=== PATIENT | female | born 1995 | race Caucasian/White ===

== ENCOUNTER → 2023-12-26 11:31 | Outpatient (REF) | payer BC, SELFPAY ==
[2023-12-26 12:23] LABS: % Basophils 0.3 % (0-2); % Eosinophils 0.6 % (0-6); % Immature Granulocytes 0.2 % (0-0.5); % Lymphocytes 31.2 % (20.5-51.1); % Monocytes 7.5 % (1.7-9.3); % Neutrophils 60.2 % (42.2-75.2); Absolute Eosinophils 0.1 10^3/uL (0-0.7); Absolute Lymphocytes 2.7 10^3/uL (1.2-3.4); Absolute Monocytes 0.7 10^3/uL (0.1-0.6); Absolute Neutrophils 5.2 10^3/uL (1.4-6.5); Hematocrit 38.4 % (37.0-47.0); Hemoglobin 12.9 g/dL (12.0-16.0); Mean Corp Hgb Conc. 33.6 g/dL (33.0-37.0); Mean Corpuscular Hgb 29.9 pg (27.0-31.0); Mean Corpuscular Volume 88.9 fL (81.0-99.0); Mean Platelet Volume 11.2 fL (7.4-10.4); Nucleated Red Blood Cells % 0 %; Platelet Count 266 10^3/uL (130-400); Red Blood Cell Count 4.32 10^6/uL (4.20-5.40); Red Cell Dist. Width 12.4 % (11.5-14.5); White Blood Cell Count 8.7 10^3/uL (4.8-10.8)
[2023-12-26 12:28] LABS: ALT (SGPT) 21 U/L (0-35); AST (SGOT) 27 U/L (14-36); Albumin 4.7 g/dl (3.5-5.0); Alkaline Phosphatase 41 U/L (38-126); Blood Urea Nitrogen 11 mg/dl (7-17); Calcium 10.2 mg/dl (8.4-10.2); Carbon Dioxide 22 mmol/L (22-30); Chloride 105 mmol/L (98-107); Glucose 85 mg/dl (70-99); HDL Cholesterol 92 mg/dl; LDL Cholesterol, Calculated 113 mg/dl; Potassium 4.1 mmol/L (3.5-5.1); Sodium 135 mmol/L (135-145); Total Bilirubin 0.8 mg/dl (0.2-1.3); Total Cholesterol 219 mg/dl (50-199); Total Protein 7.5 g/dl (6.3-8.2); Triglyceride 73 mg/dl (10-149); Very Low Density Lipoprotein 14 mg/dl (0-30); eGFR > 60.00
[2023-12-26 12:58] LABS: TSH Reflex To Free T4 1.49 uIU/ml (0.47-4.68)
== END ==
LOC: REG 11:31
PROVIDERS: ATTENDING PHYSICIAN Nurse Practitioner
DX: Z00.00 Encounter for general adult medical examination without abnormal findings (principal); Z87.39 Personal history of other diseases of the musculoskeletal system and connective tissue; J30.1 Allergic rhinitis due to pollen; R51.9 Headache, unspecified; E78.5 Hyperlipidemia, unspecified
CPT/HCPCS: 36415; 80053; 80061; 84443; 85025

== ENCOUNTER → 2024-08-16 11:45 | Outpatient (REF) | payer BC, SELFPAY ==
[2024-08-25 00:20] LABS: Chlamydia trachomatis,ThinPrep Negative (Negative); Neisseria gonorrhoeae,ThinPrep Negative (Negative); Specimen Source Cervical
[2024-08-25 05:58] LABS: HPV, High Risk Not Detected; HPV, High Risk Source Cervical
== END ==
LOC: CPAP 11:45
PROVIDERS: ATTENDING PHYSICIAN Nurse Practitioner Family
DX: Z34.90 Encounter for supervision of normal pregnancy, unspecified, unspecified trimester (principal); Z11.3 Encounter for screening for infections with a predominantly sexual mode of transmission; Z11.51 Encounter for screening for human papillomavirus (HPV)
CPT/HCPCS: 87491; 87591; 87624

== ENCOUNTER → 2024-08-17 11:51 | Outpatient (REF) | payer BC, SELFPAY ==
[2024-08-17 13:09] LABS: % Basophils 0.4 % (0-2); % Eosinophils 0.8 % (0-6); % Immature Granulocytes 0.4 % (0-0.5); % Lymphocytes 30.5 % (20.5-51.1); % Monocytes 9.2 % (1.7-9.3); % Neutrophils 58.7 % (42.2-75.2); Absolute Eosinophils 0.1 10^3/uL (0-0.7); Absolute Immature Granulocytes 0.1 10^3/uL (0-0.05); Absolute Lymphocytes 3.5 10^3/uL (1.2-3.4); Absolute Neutrophils 6.6 10^3/uL (1.4-6.5); Hematocrit 38.1 % (37.0-47.0); Hemoglobin 13.2 g/dL (12.0-16.0); Mean Corp Hgb Conc. 34.6 g/dL (33.0-37.0); Mean Corpuscular Hgb 29.9 pg (27.0-31.0); Mean Corpuscular Volume 86.2 fL (81.0-99.0); Mean Platelet Volume 11.2 fL (7.4-10.4); Nucleated Red Blood Cells % 0 %; Platelet Count 286 10^3/uL (130-400); Red Blood Cell Count 4.42 10^6/uL (4.20-5.40); Red Cell Dist. Width 12.4 % (11.5-14.5); White Blood Cell Count 11.3 10^3/uL (4.8-10.8)
[2024-08-17 13:17] LABS: Urine Albumin Negative (Neg - Trace); Urine Bilirubin Negative (Negative); Urine Character Clear (Clear); Urine Color Yellow; Urine Glucose Negative (Negative); Urine Ketone Negative (Negative); Urine Leukocyte Negative (Negative); Urine Nitrite Negative (Negative); Urine Occult Blood 2+ (Negative); Urine Urobilinogen Negative (Neg - 1+)
[2024-08-17 14:15] LABS: Glycohemoglobin (HgbA1c) 4.8 % (4.0-5.6)
[2024-08-17 14:40] LABS: Urine Mucus Many; Urine Squamous Cell >30 /LPF (Few)
[2024-08-17 14:41] LABS: Urine Amorphous Seen
[2024-08-17 14:42] LABS: Urine Bacteria Many (Negative); Urine White Cell 0-2 /HPF (0-5)
[2024-08-17 15:58] LABS: HIV Combo Negative (Negative)
[2024-08-17 17:27] LABS: Hepatitis B Surface Antigen Negative (Negative)
[2024-08-17 17:44] LABS: Hepatitis C Antibody Negative (Negative)
[2024-08-19 15:06] LABS: Syphilis/T. pallidum Ab Reflex Negative (Negative)
== END ==
LOC: REG 11:51
PROVIDERS: ATTENDING PHYSICIAN Nurse Practitioner Family; FAMILY PHYSICIAN Nurse Practitioner
DX: Z32.01 Encounter for pregnancy test, result positive (principal)
CPT/HCPCS: 36415; 81003; 81015; 83036; 84702; 85025; 86780; 86803; 86850; 86900; 86901; 87086; 87340; 87389

== ENCOUNTER → 2024-09-14 16:45 | Outpatient (REF) | payer BC, SELFPAY | LOC: PNTC 16:45 | PROVIDERS: ATTENDING PHYSICIAN Obstetrics & Gynecology | DX: Z36.0 Encounter for antenatal screening for chromosomal anomalies (principal); Z36.82 Encounter for antenatal screening for nuchal translucency | CPT/HCPCS: 76801; 76813 ==

== ENCOUNTER → 2024-11-10 15:33 | Outpatient (REF) | payer BC, SELFPAY | LOC: PNTC 15:33 | PROVIDERS: ATTENDING PHYSICIAN Obstetrics & Gynecology | DX: Z36.0 Encounter for antenatal screening for chromosomal anomalies (principal) | CPT/HCPCS: 76805; 76817 ==

== ENCOUNTER → 2024-12-15 11:32 | Outpatient (REF) | payer BC, SELFPAY ==
[2024-12-15 13:20] LABS: % Basophils 0.3 % (0-2); % Eosinophils 0.4 % (0-6); % Immature Granulocytes 0.8 % (0-0.5); % Lymphocytes 18.5 % (20.5-51.1); % Monocytes 5.5 % (1.7-9.3); % Neutrophils 74.5 % (42.2-75.2); Absolute Eosinophils 0.1 10^3/uL (0-0.7); Absolute Immature Granulocytes 0.1 10^3/uL (0-0.05); Absolute Lymphocytes 2.2 10^3/uL (1.2-3.4); Absolute Monocytes 0.7 10^3/uL (0.1-0.6); Absolute Neutrophils 8.9 10^3/uL (1.4-6.5); Hematocrit 35.4 % (37.0-47.0); Hemoglobin 12.2 g/dL (12.0-16.0); Mean Corp Hgb Conc. 34.5 g/dL (33.0-37.0); Mean Corpuscular Hgb 30.5 pg (27.0-31.0); Mean Corpuscular Volume 88.5 fL (81.0-99.0); Mean Platelet Volume 11.5 fL (7.4-10.4); Nucleated Red Blood Cells % 0 %; Platelet Count 257 10^3/uL (130-400)
[2024-12-15 13:38] LABS: 1 Hour after 50gm 175 mg/dl
[2024-12-16 12:58] LABS: Syphilis/T. pallidum Ab Reflex Negative (Negative)
== END ==
LOC: REG 11:32
PROVIDERS: ATTENDING PHYSICIAN Student in an Organized Health Care Education/Training Program; FAMILY PHYSICIAN Nurse Practitioner
DX: Z34.93 Encounter for supervision of normal pregnancy, unspecified, third trimester (principal)
CPT/HCPCS: 36415; 82950; 85025; 86780

== ENCOUNTER → 2024-12-29 07:25 | Outpatient (REF) | payer BC, SELFPAY ==
[2024-12-29 08:34] LABS: Glucose for Tolerance Test 80 mg/dl
[2024-12-29 11:32] LABS: Glucose for Tolerance Test 150 mg/dl
[2024-12-29 11:34] LABS: Glucose for Tolerance Test 136 mg/dl
[2024-12-29 12:22] LABS: Glucose for Tolerance Test 116 mg/dl
== END ==
LOC: REG 07:25
PROVIDERS: ATTENDING PHYSICIAN Student in an Organized Health Care Education/Training Program; FAMILY PHYSICIAN Nurse Practitioner
DX: Z34.90 Encounter for supervision of normal pregnancy, unspecified, unspecified trimester (principal)
CPT/HCPCS: 36415; 82951

== ENCOUNTER 2025-03-19 04:47 | Inpatient (IN) | payer BC, SELFPAY ==
[2025-03-19 05:04] VITALS: BP 125/86; BMI 28.5
[2025-03-19 05:35] LABS: Hematocrit 40.0 % (37.0-47.0); Hemoglobin 13.9 g/dL (12.0-16.0); Mean Corp Hgb Conc. 34.8 g/dL (33.0-37.0); Mean Corpuscular Volume 85.1 fL (81.0-99.0); Nucleated Red Blood Cells % 0 %; Platelet Count 222 10^3/uL (130-400); Red Cell Dist. Width 13.0 % (11.5-14.5)
[2025-03-19] MEDS: STADOL 1 MG IV ×2 (07:12→09:29)
[2025-03-19] MEDS: LR 1000 IV ×2 (07:16→14:04)
[2025-03-19] MEDS: FENTANYL/BUPIVACAINE 100 EPIDURAL ×2 (10:07→19:08)
[2025-03-19] MEDS: SUBLIMAZE 100 MCG EPIDURAL (10:22)
[2025-03-19] MEDS: PITOCIN 30 UNITS/NSS 500 ML IV (15:33)
[2025-03-20] MEDS: TYLENOL 650 MG PO (00:29)
[2025-03-20 04:20] LABS: Hematocrit 35.1 % (37.0-47.0); Hemoglobin 12.2 g/dL (12.0-16.0)
[2025-03-20] MEDS: PRENATAL PLUS 1 TABLET PO (10:10)
[2025-03-20] MEDS: COLACE 100 MG PO ×2 (10:10→19:51)
[2025-03-20] MEDS: MOTRIN 600 MG PO ×2 (10:10→19:51)
[2025-03-21] MEDS: PRENATAL PLUS 1 TABLET PO (08:15)
[2025-03-21] MEDS: COLACE 100 MG PO (08:15)
[2025-03-21] MEDS: MOTRIN 600 MG PO (08:15)
[2025-03-21 13:53] LABS: Syphilis/T. pallidum Ab Reflex Negative (Negative)
== END 2025-03-21 12:10 | disposition home or self-care (01) | DRG 807 ==
LOC: LDRP 04:47
PROVIDERS: ADMITTING PHYSICIAN Obstetrics & Gynecology; FAMILY PHYSICIAN Nurse Practitioner
PROC: 10907ZC Drainage of Amniotic Fluid, Therapeutic from Products of Conception, Via Natural or Artificial Opening (ICD-10-PCS; 2025-03-19)
PROC: 10E0XZZ Delivery of Products of Conception, External Approach (ICD-10-PCS; 2025-03-19)
PROC: 3E0E7GC Introduction of Other Therapeutic Substance into Products of Conception, Via Natural or Artificial Opening (ICD-10-PCS; 2025-03-19)
DX: O76 Abnormality in fetal heart rate and rhythm complicating labor and delivery (principal); Z37.0 Single live birth; Z3A.38 38 weeks gestation of pregnancy; O69.81X0 Labor and delivery complicated by cord around neck, without compression, not applicable or unspecified; O70.0 First degree perineal laceration during delivery
CPT/HCPCS: 36415; 85014; 85018; 85025; 86762; 86780; 86850; 86900; 86901; 88307